=== PATIENT | male | born 1985 | race Caucasian/White ===

== ENCOUNTER 2016-09-20 14:51 | Emergency (ER) | payer OTHER, BC ==
[~2016-09-20] VITALS: Ht 180.3 cm; Wt 98.0 kg
[2016-09-20 14:56] VITALS: TEMP 36.8; Ht 180.3 cm; Wt 98.0 kg
[2016-09-20] MEDS ORDERED: BUPR-102 PO (15:22)
[2016-09-20] MEDS ORDERED: XYLOCAINE 1%/SOD BICARB 20 ML VIAL INFIL ONE ×2 (15:47→16:00)
[2016-09-20 16:22] VITALS: BP 151/94; PULSE 76; O2SAT 97
--- NOTE | 2016-09-22 10:51 | EMERGENCY ROOM VISIT NOTE ---
ED Visit Note First contact with patient: 15:42 Chief Complaint: I cut my right thumb. History of Present Illness: Mr. Lopez is a 31-year-old white male who ambulates into the ED complaining of a left thumb laceration. Patient reports approximately one hour ago he was cutting material at work with a new blade and sustained a laceration to the lateral aspect of the left thumb. Prior to arrival at the hospital he did control bleeding but did not wash the wound. Associated with his laceration he complains of a stinging pain. He rates this discomfort 2/10. The pain is nonradiating. The pain worsens with palpation. He has not identified any alleviating factors related to the pain. He has not taken any medications for pain prior to arrival at the hospital. Associated with his laceration he does report he has a mild numbness sensation in the distal aspect of the right thumb. Review of Systems: As noted above in history of present illness. Past Medical History: Patient denies. Current Medications: Bupropion. Allergies to Medications: Ibuprofen. Social History: Patient is currently employed; he feels safe in his home environment; he denies tobacco and alcohol use. Tetanus Immunization Status: Patient reports up-to-date. Physical Examination: Vital Signs: Date Time Temp Pulse Resp B/P (MAP) Pulse Ox O2 Delivery O2 Flow Rate FiO2 09/20/16 16:22 76 15 151/94 97 09/20/16 14:56 36.8 80 16 133/82 97 GENERAL: 31-year-old male in mild distress due to pain, nontoxic-appearing, afebrile and hemodynamically stable. NEUROLOGICAL: Awake, alert and oriented to person, place and time. Answering questions appropriately and following commands. Normal gait. Good hand eye coordination. No focal motor or sensory deficits. SKIN: Warm, dry and pink. Right Thumb: 3.4 cm full-thickness laceration of the lateral aspect of the thumb. No active bleeding. RIGHT HAND: Soft tissue injury as noted above. No gross bony deformity. Patient has no tenderness over the first MCP or interphalangeal joint. He has full range of motion of flexion and extension of the interphalangeal joint and MCP joint against resistance. Throughout the thumb the skin was warm and pink and capillary refill is brisk. He was able to distinguish light sensations through all dermatomes. ED Course: Patient is assessed as noted above. Wound Repair: Complexity: Basic Verbal consent was obtained after the risks and benefits were explained. The skin was prepped with betadine and a sterile field set. Wound edges of the wound was anesthetized with 2.2 ml buffered 1% lidocaine. The wound was explored for foreign bodies and none found. Copious irrigation was performed using sterile saline. With direct pressure the bleeding subsided. Debridement was not performed. The wound edges were approximated using 5-0 Ethilon with 7 simple interrupted sutures. Hemostasis and excellent approximation was achieved. Antibacterial ointment and a sterile dressing applied. No complications and the patient tolerated the procedure well. Patient was educated about tonight's findings and instructed on his treatment plan; he verbalizes understanding and agreement with this plan. Clinical Impression: Laceration of the right thumb. Work related injury. Disposition: Patient discharged home in stable condition; prior to departure he was reassessed and subjectively reported he was pain-free. Plan: Comfort measures, wound care, and signs of infection were discussed with the patient. Patient was encouraged to follow-up with Workmen's Compensation or return to the ED for signs of infection and/or suture removal in 10-12 days.
--- NOTE | 2016-09-24 09:59 | EDITING REQUIRED CODING QUERY ---
CODING QUERY Tulio MATHIS, To promote full compliance with coding requirements relating to patient care, provider participation is requested in all cases of beach expert uncertainty. Please assist us with the question(s) below: Coding Question(s): History of Present Illness states Laceration of Left Thumb. Impression states Laceration of Right Thumb. Please clarify which thumb had laceration below: Physician's Response(s): Laceration to Right Thumb Thank you Canelo Hernandez Principal Diagnosis: "_that condition established after study, to be chiefly responsible for occasioning the admission of the patient to the hospital for care." Co-Existing Principal Diagnosis: "_when two or more diagnoses equally meet the criteria for principal diagnosis as determined by the circumstances of admission, diagnostic work up, and/or therapy provided, and the Alphabetic Index, Tabular List, or another coding guideline does not provide sequencing direction, any one of the diagnoses may be sequenced first." "When the physician has documented what appears to be a current diagnosis in the body of the record, but has not included the diagnosis in the final diagnostic statement, the physician should be asked whether the diagnosis should be added." (Source [facility] 2 QTR90. p3-4)
== END 2016-09-20 16:22 | disposition home or self-care (01) ==
LOC: C.EDB 14:52 → C.EDD 16:22
DX: S61.011A Laceration without foreign body of right thumb without damage to nail, initial encounter (principal); W26.8XXA Contact with other sharp object(s), not elsewhere classified, initial encounter; Y93.89 Activity, other specified; Y99.0 Civilian activity done for income or pay